=== PATIENT | female | born 1985 | race African-American/Black ===

== ENCOUNTER 2017-03-22 14:41 | Emergency (ER) | payer MEDICAID | END 2017-03-22 16:31 | disposition home or self-care (01) | LOC: D.ER 14:41 | DX: S83.91XA Sprain of unspecified site of right knee, initial encounter (principal); X58.XXXA Exposure to other specified factors, initial encounter; Y93.H2 Activity, gardening and landscaping; Y92.017 Garden or yard in single-family (private) house as the place of occurrence of the external cause ==

== ENCOUNTER 2017-04-05 00:05 | Emergency (ER) | payer MEDICAID ==
[2017-04-05 00:48] LABS: APPEARANCE HAZY (CLEAR); BILIRUBIN NEGATIVE (NEGATIVE); COLOR YELLOW (YELLOW); GLUCOSE NEGATIVE (NEGATIVE); KETONE NEGATIVE (NEGATIVE); LEUKOCYTE ESTERASE TRACE (NEGATIVE); NITRITE NEGATIVE (NEGATIVE); PROTEIN TRACE mg/dL (NEGATIVE); SPECIFIC GRAVITY 1.025 (1.005-1.020); UROBILINOGEN NORMAL (NORMAL)
[2017-04-05 00:49] LABS: EPITHELIAL CELLS 0-5 /hpf (0-5); WHITE CELLS - URINE 0-5 /hpf (0-5)
[2017-04-05 00:50] LABS: BACTERIA FEW /hpf (NONE SEEN); MUCUS <1+ /lpf (NONE SEEN); RED CELL CAST OCC /lpf (NONE SEEN)
== END 2017-04-05 01:02 | disposition home or self-care (01) ==
LOC: D.ER 00:05
PROVIDERS: Emergency Medicine
DX: M54.5 Low back pain (principal)

== ENCOUNTER 2017-06-03 12:16 | Emergency (ER) | payer MEDICAID ==
[2017-06-03 12:51] LABS: BASOPHILS 0.2 % (0-2); EOSINOPHILS 1.4 % (0-7); HEMATOCRIT 35.7 % (36.0-48.0); HEMOGLOBIN 11.6 g/dL (12-16); LYMPHOCYTES 47.3 % (15-50); MCH 27.6 pg (26.0-34.0); MCHC 32.5 g/dL (31.0-37.0); MEAN PLATELET VOLUME 10.5 fL (7.4-10.4); NEUTROPHILS 44.1 % (40-80); PLATELET COUNT 232 10x3/uL (130-400); WBC 4.3 10x3/uL (4.8-10.8)
[2017-06-03 13:04] LABS: ALBUMIN 3.4 g/dL (3.4-5.0); ANION GAP 9.9 mmol/L (8-16); BILIRUBIN - TOTAL 0.2 mg/dL (0.2-1.3); CALCIUM 8.5 mg/dL (8.5-10.1); CARBON DIOXIDE 30.6 mmol/L (21.0-32.0); POTASSIUM - SERUM 3.5 mmol/L (3.5-5.1); PROTEIN - SERUM 7.6 g/dL (6.4-8.2)
[2017-06-03 13:51] LABS: APPEARANCE CLOUDY (CLEAR); BILIRUBIN NEGATIVE (NEGATIVE); COLOR DK YELLOW (YELLOW); GLUCOSE NEGATIVE (NEGATIVE); KETONE NEGATIVE (NEGATIVE); LEUKOCYTE ESTERASE TRACE (NEGATIVE); NITRITE NEGATIVE (NEGATIVE); PROTEIN 1+ mg/dL (NEGATIVE); UROBILINOGEN NORMAL (NORMAL); WHITE CELLS - URINE 0-5 /hpf (0-5)
[2017-06-03 13:52] LABS: BACTERIA MODERATE /hpf (NONE SEEN); MUCUS <1+ /lpf (NONE SEEN); RED CELLS - URINE >50 /hpf (0-5)
== END 2017-06-03 14:15 | disposition home or self-care (01) ==
LOC: D.ER 12:16
PROVIDERS: Nurse Practitioner Family
DX: N39.0 Urinary tract infection, site not specified (principal); S39.012A Strain of muscle, fascia and tendon of lower back, initial encounter; X58.XXXA Exposure to other specified factors, initial encounter; Y93.89 Activity, other specified; Y92.89 Other specified places as the place of occurrence of the external cause; M54.5 Low back pain

== ENCOUNTER 2017-07-09 10:31 | Emergency (ER) | payer MEDICAID | END 2017-07-09 12:14 | disposition home or self-care (01) | LOC: D.ER 10:31 | DX: K02.9 Dental caries, unspecified (principal) ==

== ENCOUNTER 2019-08-06 13:40 | Emergency (ER) | payer OTHER ==
[~2019-08-06] VITALS: Ht 162.6 cm; Wt 88.2 kg
[2019-08-06 14:30] VITALS: Ht 162.6 cm; Wt 88.2 kg
[2019-08-06] MEDS ORDERED: VOLTAREN75 MG PO (16:23)
[2019-08-06 17:14] VITALS: BP 126/78
== END 2019-08-06 17:14 | disposition home or self-care (01) ==
LOC: D.ER 13:40
DX: M76.9 Unspecified enthesopathy, lower limb, excluding foot (principal)